=== PATIENT | male | born 1955 | race Caucasian/White ===

== ENCOUNTER 2019-01-24 11:57 | Observation (INO) ==
[2019-01-24] MEDS ORDERED: ONDANSETRON 4 MG/2 ML VIAL IVP ONE (12:24)
[2019-01-24] MEDS ORDERED: Sodium Chloride 0.9% 1,000 ML PRIMARY IV ONE ×2 (12:24→13:13)
[2019-01-24 12:48] LABS: Hematocrit [HCT] 46.6 % (42.0-52.0); Hemoglobin [HGB] 15.9 g/dL (14.0-18.0); MEAN CORPUSCULAR VOLUME 89 FL (80-90); RED BLOOD COUNT 5.24 10^6/uL (4.70-6.10)
[2019-01-24 12:49] LABS: BASOPHILS % (AUTO) 0.7 % (0-1); EOSINOPHILS % (AUTO) 4.4 % (0-8); LYMPHOCYTES # (AUTO) 1.47 10*3/uL; MEAN CORPUSCULAR HGB CONC 34.1 g/dL (33-37); MEAN PLATELET VOLUME 6.8 FL (7.4-12.2); MONOCYTES # (AUTO) 1.04 10*3/UL (0.3-0.8); NEUTROPHILS # (AUTO) 5.69 10*3/UL; NEUTROPHILS % (AUTO) 65.9 % (50-80)
[2019-01-24 12:50] LABS: BASOPHILS # (AUTO) 0.06 10*3/UL; EOSINOPHILS # (AUTO) 0.38 10*3/UL; PLATELET MORPHOLOGY COMMENT NORMAL MORPHOLOGY (NORM); RBC MORPHOLOGY COMMENT NORMAL MORPHOLOGY (NORM); WBC MORPHOLOGY COMMENT NORMAL MORPHOLOGY (NORM)
[2019-01-24 12:56] LABS: BUN/CREATININE RATIO 8.66 (6-20); SERUM ALBUMIN 4.1 g/dL (3.5-4.8)
[2019-01-24 12:59] LABS: BILIRUBIN,URINE NEGATIVE (NEG); CLARITY,URINE CLEAR (CLEAR); COLOR,URINE YELLOW (Y); GLUCOSE, URINE (UA) NEGATIVE (NEG); OCCULT BLOOD,URINE NEGATIVE (NEG); PH,URINE 5.5 (5.0-8.5); PROTEIN,URINE NEGATIVE (NEG); UROBILINOGEN,URINE 0.2 EU/dL (0.2)
[2019-01-24 13:05] LABS: URINE SAMPLE TYPE CLEAN CATCH URINE
[2019-01-24 14:20] LABS: VENOUS PH 7.33 (7.32-7.42)
[2019-01-24] MEDS ORDERED: ONDANSETRON 4 MG/2 ML VIAL IVP PRN (16:52)
[2019-01-24] MEDS ORDERED: RISPERIDONE 0.5 MG PO SCH (16:52)
[2019-01-24] MEDS ORDERED: LIDOCAINE W/ SODIUM BICARB 0.5 ML SYR SUBD PRN (16:52)
[2019-01-24] MEDS: Lactated Ringers 1,000 ML PRIMARY IV SCH (18:01)
[2019-01-24] MEDS ORDERED: Acetaminophen 1000mg Inj 1,000 MG/100 ML VIAL IV PRN (18:57)
[2019-01-24] MEDS: [UNRECOGNIZED DRUG - OTHER] INH SCH (19:19)
[2019-01-24] MEDS ORDERED: NICOTINE 21 MG /DAY PATCH TRANSDERM SCH (19:30)
[2019-01-24] MEDS: lamoTRIgine 100 MG TABLET PO SCH (20:28)
[2019-01-24] MEDS ORDERED: traZODone Tab 50 MG TAB PO SCH (21:00)
[2019-01-24] MEDS ORDERED: HYDROXYZINE PAMOATE 25 MG CAPSULE PO SCH (21:00)
[2019-01-24] MEDS ORDERED: OLANZapine Tab 5 MG TAB PO SCH (21:00)
[2019-01-25 04:55] VITALS: RESP 20
[2019-01-25] MEDS: Lactated Ringers 1,000 ML PRIMARY IV SCH (04:58)
[2019-01-25 05:10] LABS: RED BLOOD COUNT 4.95 10^6/uL (4.70-6.10)
[2019-01-25 05:11] LABS: BASOPHILS # (AUTO) 0.01 10*3/UL; BASOPHILS % (AUTO) 0.2 % (0-1); EOSINOPHILS # (AUTO) 0.39 10*3/UL; Hematocrit [HCT] 41.8 % (42.0-52.0); Hemoglobin [HGB] 13.8 g/dL (14.0-18.0); LYMPHOCYTES # (AUTO) 1.58 10*3/uL; MEAN CORPUSCULAR VOLUME 84.4 FL (80-90); MEAN PLATELET VOLUME 8.3 FL (7.4-12.2); MONOCYTES # (AUTO) 0.76 10*3/UL (0.3-0.8); MONOCYTES % (AUTO) 11.8 % (5-15); NEUTROPHILS # (AUTO) 3.69 10*3/UL; PLATELET MORPHOLOGY COMMENT NORMAL MORPHOLOGY (NORM); RBC MORPHOLOGY COMMENT NORMAL MORPHOLOGY (NORM); WBC MORPHOLOGY COMMENT NORMAL MORPHOLOGY (NORM)
[2019-01-25 05:15] LABS: BUN/CREATININE RATIO 7.33 (6-20); SERUM ALBUMIN 3.3 g/dL (3.5-4.8)
[2019-01-25] MEDS ORDERED: LEVOTHYROXINE 112 MCG TABLET PO SCH ×2 (05:30)
[2019-01-25] MEDS ORDERED: ESCITALOPRAM 10 MG TABLET PO SCH (09:00)
[2019-01-25] MEDS ORDERED: ClonazePAM Tab 1 MG TABLET PO SCH (09:00)
[2019-01-25] MEDS: [UNRECOGNIZED DRUG - OTHER] INH SCH (09:01)
[2019-01-25] MEDS: lamoTRIgine 100 MG TABLET PO SCH (09:51)
[2019-01-25 12:21] VITALS: BP 124/57; TEMP 98.1; O2SAT 93
== END 2019-01-25 12:30 | disposition home or self-care (01) ==
LOC: MED/SURG 11:57 → ER 11:57 → MED/SURG 16:50
PROVIDERS: ADMIT Family Medicine; ATTEND Family Medicine